=== PATIENT | male | born 1945 | race Caucasian/White ===

== ENCOUNTER 2019-09-09 14:13 | Emergency (ER) | payer MEDICARE, SELFPAY ==
--- NOTE | ~2019-09-09 | XR_ITS ---
EXAMINATION: XR chest 1V portable DATE: 09/09/2019 14:45 INDICATION: Peripheral edema. Erythema to the ankles. TECHNIQUE: frontal view of the chest was obtained. COMPARISON: None FINDINGS: The lungs are clear with no focal airspace opacities, pulmonary edema, pleural effusion or pneumothor ax. Cardiomegaly. Dual lead pacemaker seen with leads projecting over the expected locations of the r ight atrium and right ventricle. Likely old fracture deformity at the right scapular body. IMPRESSION: 1. No acute cardiopulmonary disease. 2. Cardiomegaly. Reviewed, dictated and finalized at location A.
[2019-09-09 14:15] VITALS: BP 134/99; PULSE 79; RESP 20; TEMP 36.8; O2SAT 97
--- NOTE | 2019-09-09 14:25 | ECG_ITS ---
Measurements Intervals [place] Rate: 81 P: 174 MS: 196 QRS: 45 QRSD: 102 T: 19 QT: 351 QTc: 408 Interpretive Statements ELECTRONIC ATRIAL PACEMAKER DELAYED PRECORDIAL R/S TRANSITION MINIMAL Q WAVES- INFERIOR LEADS BASELINE ARTIFACT- I, III BORDERLINE ECG Electronically Signed On 09-09-2019 16:30:38 CDT by Holger Suresh D.O.
--- NOTE | 2019-09-09 14:36 | ED.LOWEXIN ---
HPI - Extremity Injury (Lower) General Chief Complaint: Extremity Injury, Lower Stated Complaint: L leg red Time Seen by Provider: 09/09/19 14:18 History of Present Illness HPI Narrative: Patient presents with his grown son for a red and sore left lower leg. This started a couple days ago, without known injury. He had chills 2 nights ago, and has sweats daily. He denies fever. He says the pain radiates up into his thigh. He has not been sick in the last couple weeks. He lives with his and has been sheltering in place. He has a regular PCP, but has not taken his water pill for years because since his prostate surgery he has urinary incontinence. He has mild to moderate swelling in his lower legs Onset (ago): day(s) Type of Injury: unknown Place: home Severity: moderate Associated symptoms: swelling Related Data Home Medications Medication Instructions Recorded Confirmed acetaminophen 1,000 mg PO Q6H PRN 09/09/19 aripiprazole [Abilify] 7.5 mg PO DAILY 09/09/19 aspirin [Aspir-81] 81 mg PO DAILY 09/09/19 calcium carbonate-vitamin D3 1 tablet PO DAILY 09/09/19 [Caltrate 600 plus D] [id number] 1 drp OPHTHALMIC (EYE) HS 09/09/19 [Refresh Optive Jose Antonio-3 (PF)] cetirizine [Zyrtec] 10 mg PO DAILY 09/09/19 cholecalciferol (vitamin D3) 25 mcg PO DAILY 09/09/19 [Vitamin D3] cyanocobalamin (vitamin B-12) 1,000 mcg PO DAILY 09/09/19 [Vitamin B-12] folic acid 0.4 mg PO DAILY 09/09/19 furosemide [Lasix] 20 mg PO DAILY 09/09/19 isosorbide dinitrate [Isordil] 20 mg PO DAILY 09/09/19 levothyroxine [Levoxyl] 88 mcg PO DAILY 09/09/19 magnesium oxide 250 mg PO DAILY 09/09/19 metformin 500 mg PO DAILY 09/09/19 multivitamin with minerals 1 tablet PO DAILY 09/09/19 [Multiple Vitamin-Minerals] nystatin-triamcinolone 1 applic TOPICAL BID 09/09/19 rosuvastatin [Crestor] 40 mg PO DAILY 09/09/19 saliva stimulant comb. no.3 1 applic MUCOUS MEMBRANE BID 09/09/19 [Biotene Moisturizing Mouth] sodium chloride [[place] Nasal] 1 spray INTRANASAL ONCE 09/09/19 venlafaxine [Effexor XR] 225 mg PO DAILY 09/09/19 Allergies Allergy/AdvReac Type Severity Reaction Status Date / Time Influenza Virus Vaccines Allergy Hives Verified 09/09/19 15:10 Review of Systems Review of Systems: Narrative: CONSTITUTIONAL: Denies fever. EYES: Denies visual changes, redness, or discharge. ENT: Denies rhinorrhea, congestion, sore throat, or otalgia. CARDIOVASCULAR: Denies chest pain, palpitations, or edema. RESPIRATORY: Denies cough or dyspnea. GASTROINTESTINAL: Denies abdominal pain, nausea, vomiting, or diarrhea. GENITOURINARY: Denies dysuria or hematuria. SKIN: Denies rash or itching. MUSCULOSKELETAL: Denies back pain, joint pain. NEUROLOGIC: Denies headache, numbness, or weakness. PSYCHIATRIC: Denies anxiety or depression. All systems reviewed & are unremarkable except as noted in HPI and below ENT: Reports system reviewed and no additional complaints, except as documented Cardiovascular: Cardiovascular: Reports no additional cardiovascular complaints Respiratory: Respiratory: Reports no additional respiratory complaints Gastrointestinal: Gastrointestinal: Reports no additional gastrointestinal complaints Genitourinary: Genitourinary: Reports urinary incontinence PMFSH Past Medical History Medical History (Updated 09/09/19 @ 16:31 by Dilma Rowe MD) Prostate cancer Surgical History Surgical History (Updated 09/09/19 @ 14:41 by Dilma Rowe MD) H/O prostatectomy Social History Social History (Updated 09/09/19 @ 14:41 by Dilma Rowe MD) Smoking status: Never smoker Alcohol intake: never Substance use: never Exam Narrative: Exam Narrative: GENERAL: Well-appearing, well-nourished, and in no acute distress, obese, unkempt [employer]. HEAD: Normocephalic, atraumatic. EYES: PERRLA and EOMI. ENT: Nares clear, no rhinorrhea or epistaxis. Mucous membranes moist. NECK: Supple. CHEST: C
[2019-09-09 14:40] LABS: Basophils Percent Auto 0.2 % (0.2-1.2); Eosinophils Absolute Auto 0.1 K/mm3 (0-0.3); Eosinophils Percent Auto 0.4 % (0-4.4); Hematocrit 43.7 % (42.0-52.0); Hemoglobin 14.3 g/dL (14.0-18.0); Immature Granulocyte Absolute 0.11 K/mm3 (0.00-0.031); Immature Granulocyte Percent A 0.7 % (0-0.5); Lymphocytes Absolute Auto 0.61 K/mm3 (0.9-3.2); Lymphocytes Percent Auto 3.7 % (18.3-44.2); Mean Corpuscular HGB Conc 32.7 g/dl (32-36); Mean Corpuscular Hemoglobin 30.8 pg (26-34); Mean Corpuscular Volume 94.2 fl (80-100); Mean Platelet Volume 9.9 fl (7.4-10.4); Monocytes Absolute Auto 1.2 K/mm3 (0.1-0.6); Monocytes Percent Auto 7.4 % (2.6-8.5); Neutrophils Absolute Auto 14.5 K/mm3 (1.3-6.7); Neutrophils Percent Auto 87.6 % (45.5-73.1); Platelet Count Result 201 k/mm3 (150-375); Red Blood Count 4.64 M/mm3 (4.6-6.20); Red Cell Distribution Width 13.8 % (11.5-14.5); White Blood Count 16.5 K/mm3 (4.5-10.0)
[2019-09-09 14:52] LABS: Alanine Aminotransferase 71 U/L (4-50); Albumin Level 4.7 g/dL (3.5-5.1); Alkaline Phosphatase 83 U/L (38-126); Aspartate Amino Transferase 68 U/L (17-59); Bilirubin,Total 0.8 mg/dL (0.2-1.3); Blood Urea Nitrogen 17 mg/dL (9-20); Calcium 9.2 mg/dL (8.4-10.2); Carbon Dioxide 25 mmol/L (22-30); Chloride 100 mmol/L (98-107); Estimated CRCL calculation 64 ml/min; Estimated Glomerular Filt Rate > 60; Glucose 137 mg/dL (75-110); INR 1.1; Potassium 4.5 mmol/L (3.4-5.0); Prothrombin Time 13.4 Seconds (11.1-14.7); Sodium 136 mmol/L (137-145)
[2019-09-09 14:53] LABS: Partial Thromboplastin Time 26.3 SECONDS (22.3-36.8)
[2019-09-09 15:02] LABS: NT Pro B Type Natriuretic Pept 55 PG/ML (5-100)
[2019-09-09 15:13] VITALS: BP 110/58; PULSE 75; RESP 18; TEMP 37.2; O2SAT 98
[2019-09-09 17:18] VITALS: BP 114/71; PULSE 74; RESP 18; O2SAT 100
== END 2019-09-09 17:20 | disposition home or self-care (01) ==
PROVIDERS: Emergency Provider Emergency Medicine; PCP Family Medicine
DX: L03.116 Cellulitis of left lower limb (principal); D72.828 Other elevated white blood cell count; I51.7 Cardiomegaly; R74.8 Abnormal levels of other serum enzymes; Z90.79 Acquired absence of other genital organ(s); Z85.46 Personal history of malignant neoplasm of prostate; Z79.82 Long term (current) use of aspirin; E11.9 Type 2 diabetes mellitus without complications; Z79.84 Long term (current) use of oral hypoglycemic drugs; E03.9 Hypothyroidism, unspecified; Z95.0 Presence of cardiac pacemaker; R94.31 Abnormal electrocardiogram [ECG] [EKG]
CPT/HCPCS: 36415; 71045; 80053; 83880; 85025; 85610; 85730; 87040; 87077; 87186; 93005; 96365; 96366; 96375; 99284; J2543; J3370